=== PATIENT | male | born 1980 | race Caucasian/White ===

== ENCOUNTER 2018-03-31 14:43 | Emergency (ER) | payer SELFPAY ==
[~2018-03-31] VITALS: Ht 175.3 cm; Wt 79.4 kg
--- NOTE | 2018-03-31 15:44 | PHYS DOC ---
Past History Past Medical History: No Pertinent History Past Surgical History: No Surgical History Drug Use: None Adult General Chief Complaint Chief Complaint: FOOT INJURY PAIN HPI HPI 38-year-old male presenting to the emergency department today with right ankle injury. He injured it 2 days ago when he was doing a back flip and landed on the right ankle. Since then he has had swelling bruising and pain. The pain is on the lateral malleolus. Is a sharp mild intermittent pain without radiation. He denies fevers chills. He denies knee pain or foot pain. Review of systems is negative for any pain or hip pain proximally. He denies chest pain or shortness of breath. All other review of systems is negative unless otherwise noted in history of present illness. ED course: 38-year-old male presenting the emergency department today with right ankle pain after injuring it 2 days ago. X-rays obtained. X-rays unremarkable for acute fracture. Patient is nontender in the foot. Nontender in the calf.The patient has been examined and was not found to have an emergency medical condition. The patient was then discharged home in stable condition to follow up with their primary care physician over the next 2-3 days. They were to return if their symptoms worsened or if they were concerned for any reason. They were also instructed to return to the emergency department if they were unable to get the recommended and appropriate follow-up. [id number] discharge instructions and return precautions were given. Patient's questions were answered to their satisfaction. Patient is comfortable with plan. Review of Systems Review of Systems SEE ABOVE. Allergies Allergies Allergies Coded Allergies Type Severity Reaction Last Updated Verified No Known Drug Allergies 03/31/18 No Physical Exam Physical Exam SEE ABOVE Constitutional: Well developed, well nourished, no acute distress, non-toxic appearance. [] HENT: Normocephalic, atraumatic, bilateral external ears normal, oropharynx moist, no oral exudates, nose normal. [] Eyes: PERRLA, EOMI, conjunctiva normal, no discharge. [] Neck: Normal range of motion, no tenderness, supple, no stridor. [] Cardiovascular:Heart rate regular rhythm, no murmur [] Lungs & Thorax: Bilateral breath sounds clear to auscultation [] Abdomen: Bowel sounds normal, soft, no tenderness, no masses, no pulsatile masses. [] Skin: Warm, dry, no erythema, no rash. [] Back: No tenderness, no CVA tenderness. [] Extremities: The patient's right ankle is mildly swollen with tenderness palpation of the lateral malleolus. Nontender foot. Normal neurovascular status with a palpable pulse and 2 second cap refill. Nontender calf. Nontender venous system. Negative Homans sign. Knee is nontender with normal range of motion. The remainder the extremities are nontender and neurovascularly intact. Neurologic: Alert and oriented X 3, normal motor function, normal sensory function, no focal deficits noted. [] Psychologic: Affect normal, judgement normal, mood normal. [] Current Patient Data Vital Signs Vital Signs Date Time Temp Pulse Resp B/P (MAP) Pulse Ox O2 Delivery O2 Flow Rate FiO2 03/31/18 15:12 98.7 72 22 97 Room Air EKG EKG [] Radiology/Procedures Radiology/Procedures [] Course & Med Decision Making Course & Med Decision Making Pertinent Labs and Imaging studies reviewed. (See chart for details) [] Dragon Disclaimer Dragon Disclaimer This electronic medical record was generated, in whole or in part, using a voice recognition dictation system. Departure Departure: Impression: Primary Impression: Right ankle pain Disposition: HOME, SELF-CARE Condition: STABLE Referrals: PCP,DANIEL (PCP) Patient Instructions: Ankle Pain Additional Instructions: Thank you for allowing us to participate in your care today. Return to the emergency department you have any new or worsening symptoms, or if you are concerned for any reason. Return to emergency department if you have any new or concerning symptoms including but not limited to fever, chills, nausea, vomiting, intractable pain, any new rashes, chest pain, shortness of air , uncontrolled bleeding, difficulty breathing, and/or vision loss. Follow up with your primary care physician within 3 days. Call your Primary Doctor tomorrow and inform them of your visit today. If you do not have a primary care provider we are happy to provide you with a list of our primary care providers contact information. This condition should be evaluated by your primary care physician and any recommended consulting services for continued management within 2-3 days after discharge. If at any time, you are having difficulty getting into your primary care doctor or a specialist, return to the emergency department. Scripts Ibuprofen (IBUPROFEN) 400 Mg Tablet 1 TAB PO PRN Q8HRS PRN for PAIN, #20 TAB Prov: HAWA AVINA MD 03/31/18 HAWA AVINA MD Mar 31, 2018 15:44
--- NOTE | 2018-03-31 15:51 | RAD ---
Three-view right ankle dated 03/31/2018. No comparison available. Clinical data indication: Right ankle pain. FINDINGS: 3 views right ankle show normal bony alignment. No displaced fracture. No acute osseous or articular abnormality. Talar dome is intact. Mild soft tissue swelling. IMPRESSION: Soft tissue swelling with no evidence of underlying displaced fracture. Electronically signed by: Brody Concepcion MD (03/31/2018 3:48 PM) [id number]
[2018-03-31] MEDS ORDERED: IBUP400T18 PO (15:59)
[2018-03-31 16:05] VITALS: BP 131/89
== END 2018-03-31 16:13 | disposition home or self-care (01) ==
LOC: ER 14:43
DX: M25.571 Pain in right ankle and joints of right foot (principal); W19.XXXA Unspecified fall, initial encounter; Y93.89 Activity, other specified; Y99.8 Other external cause status; Y92.89 Other specified places as the place of occurrence of the external cause
CPT/HCPCS: 73610; 99284